=== PATIENT | male | born 1995 | race Caucasian/White ===

== ENCOUNTER 2017-09-02 21:28 | Emergency (ER) | payer BC ==
[2017-09-02] MEDS ORDERED: Morphine 4 MG/ML Syringe IVPUSH ONE (21:34)
[2017-09-02] MEDS ORDERED: Sodium Chloride 0.9% 1,000 ML IV ONE (21:34)
--- NOTE | 2017-09-02 21:36 | EDM.PDOC ---
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 He came lying in the back seat to recruit Pickup as needed refused an ambulance transport, we were able to get him on a backboard and move him from the rear seat of the pickup on a spine board No fever nausea vomiting chills sweats no chest pain shortness breath headache dizziness palpitation no bowel or urine symptoms Review of systems: As per history of present illness and below otherwise all systems reviewed and negative. Past medical history: As per history of present illness and as reviewed below otherwise noncontributory. Surgical history: As per history of present illness and as reviewed below otherwise noncontributory. Social history: No reported history of drug or alcohol abuse. Family history: As per history of present illness and as reviewed below otherwise noncontributory. Physical exam: HEENT: Atraumatic, normocephalic, pupils reactive, negative for conjunctival pallor or scleral icterus, mucous membranes moist, throat clear, neck supple, nontender, trachea midline. Lungs: Clear to auscultation, breath sounds equal bilaterally, chest nontender. Heart: S1S2, regular, negative for clicks, rubs, or JVD. Abdomen: Soft, nondistended, nontender. Negative for masses or hepatosplenomegaly. Negative for costovertebral tenderness. Pelvis: Stable nontender. Genitourinary: Deferred. Rectal: Deferred. Extremities: Atraumatic, negative for cords or calf pain. Neurovascular unremarkable. Neuro: Awake, alert, oriented. Cranial nerves II through XII unremarkable. Cerebellum unremarkable. Motor and sensory unremarkable throughout. Exam nonfocal. Skin superficial abrasion over right lower quadrant/flank just above the iliac crest Diagnostics: [CBC CMP UA INR type and screen cardiac enzymes Chest 1 view Pelvis [address] chest abdomen pelvis with contrast ] Therapeutics: [Tetanus status is updated 1 L normal saline warmed fluids Morphine 4 mg IV Dilaudid 1 mg IV ] Impression: Enlargement of left common external iliac vein, surrounding infiltrate in adjacent fat may represent small retroperitoneal hematoma Hyperdensity in the left antonio AcIS muscle, active hemorrhage considered Asymmetric widening of left SI joint Nondisplaced fracture left acetabulum [Crush injury/abdomen Abrasion right lower quadrant Back pain Rhabdomyolysis Hemodynamically stable] Definitive disposition and diagnosis as appropriate pending reevaluation and review of above. - Related Data Allergies Allergy/AdvReac Type Severity Reaction Status Date / Time No Known Allergies Allergy Verified 09/02/17 21:53 Home Meds: Home Meds . [No Known Home Meds] 09/02/17 [History] ED ROS GENERAL - Review of Systems Review Of Systems: ROS reveals no pertinent complaints other than HPI. ED EXAM, GENERAL - Physical Exam Exam: See Below Course - Orders/Labs/Meds Orders: Active Orders 24 hr Category Date Time Status Patient Status [ADT] Stat ADT 09/02/17 22:30 Active EKG Documentation Completion [RC] STAT Care 09/02/17 21:42 Active Vaccines to be Administered [RC] PER UNIT ROUTINE Care 09/02/17 22:36 Active Abdomen Pelvis w Cont [CT] Stat Exams 09/02/17 21:35 Taken Chest 1V Frontal [CR] Stat Exams 09/02/17 21:34 Taken Chest w Cont [CT] Stat Exams 09/02/17 21:35 Taken Pelvis 1V or 2V [CR] Stat Exams 09/02/17 21:34 Taken DRUG SCREEN, URINE [URCHEM] Stat Lab 09/02/17 22:38 Uncollected UA W/MICROSCOPIC [URIN] Stat Lab 09/02/17 21:34 Uncollected Labs: Laboratory Tests 09/02/17 09/02/17 09/02/17 Range/Units 21:30 21:30 21:30 WBC 11.61 K/uL RBC 4.55 M/uL Hgb 14.4 g/dL Hct 42.3 % MCV 93.0 fL MCH 31.6 pg MCHC 34.0 g/dL RDW Std Deviation 45.8 (28.0-62.0) fl RDW Coeff of Анна 14 % Plt Count 283 K/uL MPV 9.40 fL Neut % (Auto) 59.3 % Lymph % (Auto) 33.8 % Charlotte % (Auto) 4.0 % Eos % (Auto) 2.6 % Baso % (Auto) 0.3 % Neut # (Auto) 6.9 K/uL Lymph # (Auto) 3.9 K/uL Charlotte # (Auto) 0.5 K/uL Eos # (Auto) 0.3 K/uL Baso # (Auto) 0.0 K/uL Nucleated RBC % 0.0 /100WBC Nucleated RBCs # 0 K/uL INR 1.08 Sodium 139 (136-146) mmol/L Potassium 3.2 L (3.5-5.1) mmol/L Chloride 104 (98-110) mmol/L Carbon Dioxide 22 (21-31) mmol/L BUN 23 (6.0-23.0) mg/dL Creatinine 1.0 (0.6-1.5) mg/dL Est Cr Clr Drug Dosing TNP Estimated GFR (MDRD) > 60.0 ml/min Glucose 114 H (60-110) mg/dL Calcium 9.7 (8.8-10.8) mg/dL Total Bilirubin 0.6 (0.1-1.5) mg/dL AST 52 H (5-40) IU/L ALT 36 (8-54) IU/L Alkaline Phosphatase 102 (40-150) Creatine Kinase 373 H (9-236) IU/L CK-MB (CK-2) 5.1 (0-6.6) ng/ml Troponin I < 0.10 (0.0-0.29) NG/ML Total Protein 7.5 (6.0-8.0) g/dL Albumin 4.7 (3.5-5.0) g/dL Globulin 2.8 (2.0-3.5) g/dL Albumin/Globulin Ratio 1.7 (1.3-2.8) Blood Type Antibody Screen 09/02/17 Range/Units 21:57 WBC K/uL RBC M/uL Hgb g/dL Hct % MCV fL MCH pg MCHC g/dL RDW Std Deviation (28.0-62.0) fl RDW Coeff of Анна % Plt Count K/uL MPV fL Neut % (Auto) % Lymph % (Auto) % Charlotte % (Auto) % Eos % (Auto) % Baso % (Auto) % Neut # (Auto) K/uL Lymph # (Auto) K/uL Charlotte # (Auto) K/uL Eos # (Auto) K/uL Baso # (Auto) K/uL Nucleated RBC % /100WBC Nucleated RBCs # K/uL INR Sodium (136-146) mmol/L Potassium (3.5-5.1) mmol/L Chloride (98-110) mmol/L Carbon Dioxide (21-31) mmol/L BUN (6.0-23.0) mg/dL Creatinine (0.6-1.5) mg/dL Est Cr Clr Drug Dosing Estimated GFR (MDRD) ml/min Glucose (60-110) mg/dL Calcium (8.8-10.8) mg/dL Total Bilirubin (0.1-1.5) mg/dL AST (5-40) IU/L ALT (8-54) IU/L Alkaline Phosphatase (40-150) Creatine Kinase (9-236) IU/L CK-MB (CK-2) (0-6.6) ng/ml Troponin I (0.0-0.29) NG/ML Total Protein (6.0-8.0) g/dL Albumin (3.5-5.0) g/dL Globulin (2.0-3.5) g/dL Albumin/Globulin Ratio (1.3-2.8) Blood Type O POSITIVE Antibody Screen NEGATIVE Meds: Medications Discontinued Medications Generic Name Dose Route Start Last Admin Trade Name Freq PRN Reason Stop Dose Admin Diphtheria/Tetanus/Acell Pertussis 0.5 ml 09/02/17 22:36 Adacel IM 09/02/17 22:37 .ONCE ONE Hydromorphone HCl 1 mg 09/02/17 22:29 09/02/17 22:30 Dilaudid IVPUSH 09/02/17 22:30 1 mg ONETIME ONE Administration Sodium Chloride 1,000 mls @ 999 mls/hr 09/02/17 21:34 09/02/17 21:38 Normal Saline IV 09/02/17 22:34 999 mls/hr STAT ONE Administration Morphine Sulfate 4 mg 09/02/17 21:34 09/02/17 21:40 Morphine IVPUSH 09/02/17 21:35 4 mg ONETIME ONE Administration Departure - Departure Time of Disposition: 23:38 Disposition: DC/Tfer to Other 70 Condition: Fair Clinical Impression: Crush injury, Retroperitoneal hematoma, Disorder of SI (sacroiliac) joint Clinical Impression: (Ruled Out): Retroperitoneal bleeding - Discharge Information Referrals: PCP,None [Primary Care Provider] - - My Orders Last 24 Hours: My Active Orders 09/02/17 21:34 Chest 1V Frontal [CR] Stat Pelvis 1V or 2V [CR] Stat UA W/MICROSCOPIC [URIN] Stat 09/02/17 21:35 Abdomen Pelvis w Cont [CT] Stat Chest w Cont [CT] Stat 09/02/17 21:42 EKG Documentation Completion [RC] STAT 09/02/17 22:30 Patient Status [ADT] Stat 09/02/17 22:36 Vaccines to be Administered [RC] PER UNIT ROUTINE 09/02/17 22:38 DRUG SCREEN, URINE [URCHEM] Stat - Assessment/Plan Last 24 Hours: My Active Orders 09/02/17 21:34 Chest 1V Frontal [CR] Stat Pelvis 1V or 2V [CR] Stat UA W/MICROSCOPIC [URIN] Stat 09/02/17 21:35 Abdomen Pelvis w Cont [CT] Stat Chest w Cont [CT] Stat 09/02/17 21:42 EKG Documentation Completion [RC] STAT 09/02/17 22:30 Patient Status [ADT] Stat 09/02/17 22:36 Vaccines to be Administered [RC] PER UNIT ROUTINE 09/02/17 22:38 DRUG SCREEN, URINE [URCHEM] Stat
[2017-09-02 22:07] LABS: CHLORIDE,CL 104 mmol/L (98-110); SODIUM,NA 139 mmol/L (136-146)
[2017-09-02] MEDS ORDERED: HYDROmorphone 2 MG/ML Syringe IVPUSH ONE ×2 (22:29→23:41)
[2017-09-02] MEDS ORDERED: Diphtheria,Pertussis(Acell),Tetanus Vaccine 0.5 ML Syringe IM ONE (22:36)
[2017-09-02] MEDS ORDERED: Sodium Chloride 0.9% 1,000 ML IV SCH (23:45)
--- NOTE | 2017-09-04 15:47 | CR ---
EXAM DATE: 09/02/17 PATIENT'S AGE: 21 Patient: LISA RICHARDSON Facility: [place], [place] Site . Site : 1995 Study: XRay Chest [id number]/27/2018 9:51:19 PM Ordering Physician: Doctor Maurer Final Report: CHEST 1 VIEW AP INDICATION: Trauma. Portable exam. IMPRESSION: Normal heart size and vascular pattern. Backboard. Incomplete visualization right costophrenic sulcus. No mediastinal shift. Lungs are clear. No pneumothorax or pleural abnormality. ECG Monitor leads projected over the patient. Dictated by Abdi Bowen MD @ Sep 02 2017 9:54PM (Electronic Signature) Report Signed by Proxy. SHRAVAN
--- NOTE | 2017-09-04 15:48 | CR ---
EXAM DATE: 09/02/17 PATIENT'S AGE: 21 Patient: LISA RICHARDSON Facility: [place], [place] Site . Site : 1995 Study: XRay Pelvis [id number]/27/2018 9:51:39 PM Ordering Physician: Doctor Maurer Final Report: Pelvis 1 VIEW AP INDICATION: Trauma IMPRESSION: Portable exam on backboard. Joint spaces are unremarkable. No fractures. The hips demonstrate normal alignment. Dictated by Abdi Bowen MD @ Sep 02 2017 9:54PM (Electronic Signature) Report Signed by Proxy. SHRAVAN
--- NOTE | 2017-09-04 15:49 | CT ---
EXAM DATE: 09/02/17 PATIENT'S AGE: 21 Patient: LISA RICHARDSON Facility: [place], [place] Site . Site : 1995 Study: CT Chest [id number]/27/2018 10:27:35 PM Ordering Physician: Doctor Maurer Final Report: INDICATION: Crush injury chest TECHNIQUE: CT chest with i.v. contrast. Coronal and sagittal reformats were obtained. COMPARISON: None FINDINGS: Cardiovascular: The heart has an unremarkable appearance and size. Ectasia of the ascending aortic root is noted measuring 3.5 cm in maximal short axis diameter. The pulmonary arteries are normal in appearance. Mediastinum and job: No mass, definite mediastinal hematoma, or adenopathy seen. Soft tissue is noted in the anterior mediastinum which is likely due to residual thymic tissue in this young patient. Lungs: No CT evidence of pulmonary contusion, laceration or pneumothorax seen. There is a 4 mm nodule present in the lateral left lower lobe on image 73, likely a benign finding given the patient`s young age. Pleura and pericardium: No pleural effusions are seen. No significant pericardial effusion is present. Chest wall and axilla: No mass or adenopathy seen. Ill-defined soft tissue is seen in the retroareolar complexes of the chest bilaterally and most likely due to gynecomastia. Bones: Mild kyphosis of the thoracolumbar junction is noted. Upper abdomen: Unremarkable. IMPRESSION: 1. No CT evidence of acute chest or osseous injury seen. 2. Ectasia of the ascending aortic root is noted measuring 3.5 cm in maximal short axis diameter. Clinical correlation is recommended to exclude Marfan disease, Ton-Danlos, or Homocystinuria. Dictated by Bob Henson MD @ 09/02/2017 11:06:58 PM Dictated by: Bob Henson MD @ 09/02/2017 23:07:08 (Electronic Signature) Report Signed by Proxy. SHRAVAN
--- NOTE | 2017-09-04 15:51 | CT ---
EXAM DATE: 09/02/17 PATIENT'S AGE: 21 Patient: LISA RICHARDSON Facility: [place], [place] Site . Site : 1995 Study: CT Abdomen/Pelvis [id number]/27/2018 10:29:04 PM Ordering Physician: Doctor Maurer Final Report: INDICATION: Crushing injury to abdomen and back pain TECHNIQUE: CT Abdomen and pelvis with i.v. contrast. Coronal and sagittal reformats were obtained. CONTRAST: 100 mL Omnipaque [id number] COMPARISON: None FINDINGS: Liver: Unremarkable. Spleen: Unremarkable. Pancreas: Unremarkable. Gallbladder: Unremarkable. Kidney: Unremarkable. No kidney or ureteral stones or obstruction seen. Adrenal: Unremarkable. Bowel: Unremarkable. The appendix is normal in appearance and size. Vascular: Fusiform enlargement of the left common external iliac vein is noted measuring 2.1 cm in maximal short axis diameter. There is also surrounding infiltration in the adjacent fat which may represent a small retroperitoneal hematoma. Lymph: Unremarkable. Peritoneum: No pneumoperitoneum is seen. No significant ascites is noted. Pelvis: Unremarkable. Soft tissue: Unremarkable. Bone: A small ill-defined hyperdensity is seen within the left iliacus muscle on image [id number]. Asymmetric widening of the left SI joint is present, likely due to a diastatic injury. Minimal wedging deformity at T10-11 noted with partial fusion of the disc space, producing focal kyphosis of the thoracolumbar spine. A hairline, nondisplaced fracture present in the anterior column of the left acetabulum. IMPRESSIONS: 1. Fusiform enlargement of the left common external iliac vein is noted measuring 2.1 cm in maximal short axis diameter. There is also surrounding infiltration in the adjacent fat which may represent a small retroperitoneal hematoma. Clinical follow up is recommended to exclude venous injury. 2. A small ill-defined hyperdensity is seen within the left iliacus muscle on image 87-89. A small focus of intramuscular active hemorrhage should be considered. 3. Asymmetric widening of the left SI joint is present, likely due to a diastatic injury. 4. A hairline, nondisplaced fracture present in the anterior column of the left acetabulum. Dictated by Bob Henson MD @ 09/02/2017 11:14:32 PM Dictated by: Bob eHnson MD @ 09/02/2017 23:14:47 (Electronic Signature) Report Signed by Proxy. MTDD
== END 2017-09-03 00:10 | disposition other institution (70) ==
LOC: EDSEX 21:28 → MW.ED 21:28
DX: S32.435A Nondisplaced fracture of anterior column [iliopubic] of left acetabulum, initial encounter for closed fracture (principal); S36.892A Contusion of other intra-abdominal organs, initial encounter; T79.6XXA Traumatic ischemia of muscle, initial encounter; S30.811A Abrasion of abdominal wall, initial encounter; S39.92XA Unspecified injury of lower back, initial encounter; W23.1XXA Caught, crushed, jammed, or pinched between stationary objects, initial encounter
CPT/HCPCS: 36415; 71045; 71260; 72170; 74177; 80053; 82550; 82553; 84484; 85025; 85610; 86850; 86900; 86901; 93005; 96361; 96374; 96375; 96376; 99285; J1170; J2270; J7040